=== PATIENT | female | born 1955 | race Caucasian/White ===

== ENCOUNTER 2018-07-01 06:30 | Emergency (ER) | payer OTHER ==
[~2018-07-01] VITALS: Ht 160 cm; Wt 77.1 kg
[2018-07-01] MEDS ORDERED: CRESTOR10 MG (07:26)
[2018-07-01] MEDS ORDERED: FENOFIBRIC ACID45 MG (07:27)
[2018-07-01] MEDS ORDERED: ANUSOL-HC25 MG RECTAL (09:31)
== END 2018-07-01 09:35 | disposition home or self-care (01) ==
LOC: ER 06:30
DX: K64.4 Residual hemorrhoidal skin tags (principal)